=== PATIENT | female | born 1980 | race Caucasian/White ===

== ENCOUNTER 2016-09-08 10:43 | Inpatient (IN) | payer OTHER ==
[2016-09-08 11:00] VITALS: BMI 40.2
--- NOTE | 2016-09-08 12:10 | HP ---
COWS - Scale Resting Pulse: 2= [place] 101-120 Sweatin=Flushed/Facial Moisture Restless Observation: 1= Difficult to Sit Still Pupil Size: 0= Normal to Room Light Bone or Joint Aches: 2= Severe Diffuse Aches Runny Nose/ Eye Tearin= Runny Nose/Eyes GI Upset > 30mins: 2= Nausea/Diarrhea Tremor Observation: 2= Slight Tremor Visible Yawning Observation: 2= >3x During Session Anxiety or Irritability: 2=Irritable/Anxious Goose Flesh Skin: 3=Piloerection COWS Score: 20 CIWA Score - CIWA Score Nausea/Vomitin-Mild Nausea/No Vomiting Muscle Tremors: 4-Moderate,w/Arms Extend Anxiety: 4-Mod. Anxious/Guarded Agitation: 4-Moderately Restless Paroxysmal Sweats: 3 Orientation: 0-Oriented Tacttile Disturbances: 0-None Auditory Disturbances: 0-None Visual Disturbances: 0-None Headache: 2-Mild CIWA-Ar Total Score: 18 Admission ROS [facility] - HPI Chief Complaint: I relapsed and need to get my life back. Allergies/Adverse Reactions: Allergies Allergy/AdvReac Type Severity Reaction Status Date / Time No Known Allergies Allergy Verified 09/08/16 11:19 History of Present Illness: pt is a 36yr old female with a history of benzodiazapine and heroin dependence seeking detox for treatment. Exam Limitations: No Limitations - Ebola screening Have you traveled outside of the country in the last 21 days: No Have you had contact with anyone from an Ebola affected area: No Have you been sick,other than usual withdrawal symptoms: No Do you have a fever: No - Review of Systems Constitutional: Chills, Diaphoresis, Loss of Appetite, Night Sweats, Changes in sleep, Unintentional Wgt. Loss, Other (obese) EENT: reports: Tearing, Nose Congestion Respiratory: reports: Cough Cardiac: reports: Lightheadedness GI: reports: Diarrhea, Nausea, Poor Appetite, Poor Fluid Intake, Indigestion : reports: No Symptoms Reported Musculoskeletal: reports: Back Pain, Joint Pain, Muscle Pain, Muscle Weakness Integumentary: reports: Flushing, Sweating Neuro: reports: Headache, Tingling, Tremors Endocrine: reports: Excessive Sweating, Flushing, Intolerance to Cold, Intolerance to Heat Hematology: reports: No Symptoms Reported Psychiatric: reports: Judgement Intact, Mood/Affect Appropiate, Orientated x3, Agitated, Anxious Other Systems: Reviewed and Negative Patient History - Patient Medical History Hx Anemia: No Hx Asthma: No Hx Chronic Obstructive Pulmonary Disease (COPD): No Hx Cancer: No Hx Cardiac Disorders: No Hx Congestive Heart Failure: No Hx Hypertension: No Hx Hypercholesterolemia: No Hx Pacemaker: No HX Cerebrovascular Accident: No Hx Seizures: No Hx Dementia: No Hx Diabetes: No Hx Gastrointestinal Disorders: No Hx Liver Disease: No Hx Genitourinary Disorders: No Hx Sexually Transmitted Disorders: No Hx Renal Disease (ESRD): No Hx Thyroid Disease: No Hx Human Immunodeficiency Virus (HIV): No (negative) Hx Hepatitis C: No (negative) Hx Depression: Yes Hx Suicide Attempt: No Hx Bipolar Disorder: No Hx Schizophrenia: No Other Medical History: anxiety - Patient Surgical History Past Surgical History: No Hx Neurologic Surgery: No Hx Cataract Extraction: No Hx Cardiac Surgery: No Hx Lung Surgery: No Hx Breast Surgery: No Hx Breast Biopsy: No Hx Abdominal Surgery: No Hx Appendectomy: No Hx Cholecystectomy: No Hx Genitourinary Surgery: No Hx Section: No Hx Orthopedic Surgery: No Anesthesia Reaction: No - PPD History Previous Implant?: Yes Documented Results: Negative w/o proof PPD to be Administered?: Yes - Reproductive History Patient is a Female of Child Bearing Age (11 -55 yrs old): Yes LMP comment: 2016 Patient : No - Smoking Cessation Smoking history: Former smoker Have you smoked in the past 12 months: Yes If you are a former smoker, when did you quit?: 6months Hx Chewing Tobacco Use: No Initiated information on smoking cessation: Yes 'Breaking Loose' booklet given: 09/08/16 - Substance & Tx. History Hx Alcohol Use: No Hx Substance Use: Yes Substance Use Type: Heroin, Tranquilizers Hx Substance Use Treatment: Yes - Substances Abused Heroin Route: Inhalation Frequency: Daily Amount used: 10-30 bags Age of first use: 30 Date of Last Use: 09/08/16 Diazepam Route: Oral Frequency: Daily Amount used: $40 Age of first use: 22 Date of Last Use: 09/07/16 Family Disease History - Family Disease History Family Disease History: Heart Disease: Father (obesity. gastric bypass), CA: Grandparent (breast), Other: Father Admission Physical Exam BHS - Vital Signs Vital Signs: Vital Signs - 24 hr 09/08/16 10:57 Temperature 99.1 F Pulse Rate 114 H Respiratory 18 Rate Blood Pressure 108/44 - Physical General Appearance: Yes: Appropriately Dressed, Moderate Distress, Obese, Tremorous, Irritable, Sweating, Anxious HEENTM: Yes: Normal Voice, Nasal Congestion, Rhinorrhea Respiratory: Yes: Lungs Clear, Normal Breath Sounds, No Respiratory Distress Neck: Yes: No masses,lesions,Nodules Breast: Yes: Within Normal Limits Cardiology: Yes: Regular Rhythm, Regular Rate, S1, S2 Abdominal: Yes: Normal Bowel Sounds, Non Tender, Soft Genitourinary: Yes: Within Normal Limits Back: Yes: Normal Inspection Musculoskeletal: Yes: full range of Motion, Gait Steady, Pelvis Stable Extremities: Yes: Normal Capillary Refill, Non-Tender, Tremors Neurological: Yes: Fully Oriented, Alert, Normal Response Integumentary: Yes: Normal Color, Diaphoresis Lymphatic: Yes: Within Normal Limits - Diagnostic (1) Cannabis dependence Current Visit: Yes Status: Chronic (2) Depression Current Visit: Yes Status: Chronic (3) Obesity Current Visit: Yes Status: Chronic Qualifiers: Obesity severity: unspecified obesity severity (4) Opioid dependence with withdrawal Current Visit: Yes Status: Chronic (5) Uncomplicated sedative, hypnotic or anxiolytic withdrawal Current Visit: Yes Status: Chronic Cleared for Admission [facility] - Detox or Rehab [facility] Level of Care: Medically Managed Detox Regimen/Protocol: Methadone/Valium [facility] Breath Alcohol Content Breath Alcohol Content: 0 Urine Pregancy Test - Result Urine Test Results: Negative- NO Line Present Urine Drug Screen - Results Drug Screen Negative: No Urine Drug Screen Results: THC-Marijuana, OPI-Opiates, BZO-Benzodiazepines, TCA- Tricyclic Antidepress
[2016-09-08] MEDS ORDERED: MENTHOL/PHENOL 1 EACH UD MM PRN (12:31)
[2016-09-08] MEDS ORDERED: P-EPHED 60MG/TRIPROLIDI 2.5MG TABLET PO PRN (12:31)
[2016-09-08] MEDS ORDERED: IBUPROFEN 400 MG TABLET (FP) PO PRN (12:31)
[2016-09-08] MEDS ORDERED: MAG HYDROX/AL HYDROX/SIMETH 30 ML UNIT-DOSE CUP PO PRN (12:31)
[2016-09-08] MEDS ORDERED: ACETAMINOPHEN 325 MG TABLET (FP) PO PRN (12:31)
[2016-09-08] MEDS ORDERED: MAGNESIUM HYDROX 2400MG/30ML ORAL SUSPENSION 30 ML CUP PO PRN (12:31)
[2016-09-08] MEDS ORDERED: LOPERAMIDE HCL 2 MG CAPSULE PO PRN (12:31)
[2016-09-08] MEDS ORDERED: MAGNESIUM CITRATE 300 ML BOTTLE PO PRN (12:31)
[2016-09-08] MEDS ORDERED: guaiFENesin/D-METHORPHAN HB 10 ML UNIT-DOSE CUPS PO PRN (12:31)
[2016-09-08] MEDS ORDERED: diazePAM 5 MG TABLET PO ONE (15:06)
[2016-09-08] MEDS ORDERED: METHADONE HCL 10 MG TABLET (FOR DETOX USE ONLY) PO ONE ×2 (15:08→23:00)
--- NOTE | 2016-09-08 15:30 | CONSULT ---
[facility] Psychiatric Consult - Data Date of interview: 09/08/16 Admission source: [facility] Identifying data: This is 36 years old female with no psychiatric hospitalization history intoxicated with: Opioids, Benzidiazeoins, Cannabis and Nicotine Substance Abuse History: - Smoking Cessation. Smoking history: Former smoker. Have you smoked in the past 12 months: Yes. If you are a former smoker, when did you quit?: 6months. Hx Chewing Tobacco Use: No. Initiated information on smoking cessation: Yes. 'Breaking Loose' booklet given: 09/08/16. - Substance & Tx. History. Hx Alcohol Use: No. Hx Substance Use: Yes. Substance Use Type : Heroin, Tranquilizers. Hx Substance Use Treatment: Yes. - Substances Abused. Heroin. Route: Inhalation. Frequency: Daily. Amount used: 10-30 bags. Age of first use: 30. Date of Last Use: 09/08/16. Diazepam. Route: Oral. Frequency: Daily. Amount used: $40. Age of first use: 22. Date of Last Use: 09/07/16 Medical History: Hustoiry od Obesity, Psychiatric History: Patient reports history of anxiety and depression, reports trials with Wellbutrin in the past wioth no goog response, reports recently diagnosed with Bipolar disorder and Motivated to start Lamictal as per PCP after detoxifcation Physical/Sexual Abuse/Trauma History: Denies Additional Comment: Observation. Detox Unit Care Protocol Mental Status Exam - Mental Status Exam Alert and Oriented to: Person Cognitive Function: Fair Patient Appearance: Well Groomed Mood: Anxious Affect: Appropriate Patient Behavior: Cooperative Speech Pattern: Appropriate Voice Loudness: Normal Thought Process: Goal Oriented Thought Disorder: Being Controlled Hallucinations: Denies Suicidal Ideation: Denies Homicidal Ideation: Denies Insight/Judgement: Fair Sleep: Difficulty falling asleep Appetite: Weight gain Muscle strength/Tone: Normal Gait/Station: Deferred Additional Comments: Observation. Detox Unit Care Protocol Psychiatric Findings - Problem List ([place] 1, 2,3) (1) Cannabis dependence Current Visit: Yes Status: Chronic (2) Obesity Current Visit: Yes Status: Chronic Qualifiers: Obesity severity: unspecified obesity severity (3) Opioid dependence with withdrawal Current Visit: Yes Status: Chronic (4) Uncomplicated sedative, hypnotic or anxiolytic withdrawal Current Visit: Yes Status: Chronic (5) Benzodiazepine dependence Current Visit: No Status: Acute (6) Opioid dependence Current Visit: No Status: Acute (7) Social anxiety disorder Current Visit: No Status: Acute (8) Drug-induced mood disorder Current Visit: Yes Status: Acute - Initial Treatment Plan Initial Treatment Plan: Observation. Detox Unit Care Protocol
[2016-09-08] MEDS: diazePAM 5 MG TABLET PO SCH ×2 (16:00→22:31)
[2016-09-08 16:04] LABS: URINE APPEARANCE CLEAR; URINE BILIRUBIN NEGATIVE (NEGATIVE); URINE BLOOD NEGATIVE (NEGATIVE); URINE COLOR YELLOW; URINE GLUCOSE (UA) NEGATIVE (NEGATIVE); URINE KETONE NEGATIVE (NEGATIVE); URINE LEUK ESTERASE NEGATIVE (NEGATIVE); URINE NITRITE POSITIVE (NEGATIVE); URINE PROTEIN NEGATIVE (NEGATIVE); URINE UROBILINOGEN NEGATIVE E.U./dl (0.2-1.0)
[2016-09-08 16:53] LABS: URINE BACTERIA FEW /hpf (NONE SEEN); URINE MUCUS RARE; URINE RBC 1 /hpf (0-3); URINE WBC 1 /hpf (3-5)
--- NOTE | 2016-09-08 18:37 | PN ---
[facility] Progress Note Note: received nurse call c/o nausea zofran 4 mg x 1 increase oral fluid continue detox
[2016-09-08] MEDS ORDERED: ONDANSETRON *ODT* 4 MG TABLET SL ONE (18:45)
[2016-09-08] MEDS: diazePAM 5 MG TABLET PO PRN (18:57)
[2016-09-08] MEDS: diphenhydrAMINE HCL 50 MG CAPSULE PO PRN (22:30)
[2016-09-08] MEDS: THIAMINE HCL 100 MG TABLET (FP) PO SCH (22:31)
[2016-09-09] MEDS: diazePAM 5 MG TABLET PO SCH ×3 (06:05→23:09)
[2016-09-09] MEDS: diazePAM 5 MG TABLET PO PRN ×3 (09:25→18:45)
[2016-09-09] MEDS ORDERED: METHADONE HCL 10 MG TABLET (FOR DETOX USE ONLY) PO SCH (10:00)
[2016-09-09 10:23] LABS: MCH 26.9 pg (25.7-33.7); MCHC 32.4 g/dl (32.0-36.0); MEAN CELL VOLUME 82.9 fl (80-96); MEAN PLT VOLUME 9.5 fl (7.5-11.1); PLATELET COUNT 347 K/MM3 (134-434); RDW 13.5 % (11.6-15.6); WHITE BLOOD COUNT 6.7 K/mm3 (4.0-10.0)
--- NOTE | 2016-09-09 10:26 | PN ---
[facility] CIWA - CIWA Score Nausea/Vomitin-Mild Nausea/No Vomiting Muscle Tremors: 3 Anxiety: 4-Mod. Anxious/Guarded Agitation: 3 Paroxysmal Sweats: 3 Orientation: 0-Oriented Tacttile Disturbances: 0-None Auditory Disturbances: 0-None Visual Disturbances: 0-None Headache: 0-None Present CIWA-Ar Total Score: 14 S COWS - Scale Resting Pulse: 1= [place] 81-100 Sweatin=Flushed/Facial Moisture Restless Observation: 3= Extraneous Movement Pupil Size: 0= Normal to Room Light Bone or Joint Aches: 2= Severe Diffuse Aches Runny Nose/ Eye Tearin= Runny Nose/Eyes GI Upset > 30mins: 2= Nausea/Diarrhea Tremor Observation of Outstretched Hands: 4= Gross Tremor/Twitching Yawning Observation: 0= None Anxiety or Irritability: 2=Irritable/Anxious Goose Flesh Skin: 0=Smooth Skin COWS Score: 18 [facility] Progress Note (SOAP) Objective: 09/09/16 10:25 Laboratory Tests 09/08/16 15:00 Urine Color Yellow Urine Appearance Clear Urine pH 5.0 Ur Specific [place] 1.019 Urine Protein Negative Urine Glucose (UA) Negative Urine Ketones Negative Urine Blood Negative Urine Nitrite Positive Urine Bilirubin Negative Urine Urobilinogen Negative Ur Leukocyte Esterase Negative Urine RBC 1 Urine WBC 1 Ur Epithelial Cells Rare Urine Bacteria Few Urine Mucus Rare Vital Signs - 24 hr 09/08/16 09/08/16 09/08/16 10:57 18:03 22:45 Temperature 99.1 F 98.2 F Pulse Rate 114 H 80 75 Respiratory 18 20 18 Rate Blood Pressure 108/44 115/68 120/65 09/09/16 09/09/16 09/09/16 00:30 03:30 06:41 Temperature 98.3 F Pulse Rate 84 Respiratory 18 18 18 Rate Blood Pressure 97/81 09/09/16 10:20 Temperature 98.1 F Pulse Rate 71 Respiratory 20 Rate Blood Pressure 126/73 Assessment: 09/09/16 10:25 ongoing withdrawal Plan: continue detox protocol
[2016-09-09] MEDS: PRENATAL VITAMINS W/ FOLIC ACID TABLET (FP) PO SCH (10:31)
[2016-09-09 11:03] LABS: ALK PHOS 72 U/L (45-117); ANION GAP 8 (8-16); BILIRUBIN,TOTAL 0.4 mg/dL (0.2-1.0); CALCIUM 9.4 mg/dL (8.5-10.1); CO2 26 mmol/L (21-32); CREATININE 0.8 mg/dL (0.55-1.02); GLUCOSE,RANDOM 102 mg/dL (74-106); SGOT/AST 10 U/L (15-37); SGPT/ALT 20 U/L (12-78)
--- NOTE | 2016-09-09 12:42 | EKG ---
Test Reason : Blood Pressure : / mmHG Vent. Rate : 067 BPM Atrial Rate : 067 BPM P-R Int : 148 ms QRS Dur : 098 ms QT Int : 396 ms P-R-T Axes : 023 010 033 degrees QTc Int : 418 ms NORMAL SINUS RHYTHM WITH SINUS ARRHYTHMIA NON-SPECIFIC INTRA-VENTRICULAR CONDUCTION DELAY NO PREVIOUS ECGS AVAILABLE Confirmed by ROSENDO HONG MD ([id number]) on 09/09/2016 12:42:18 PM Referred By: Confirmed By:ROSENDO HONG MD
[2016-09-09] MEDS: hydrOXYzine PAMOATE 50 MG CAPSULE (FP) PO PRN ×2 (15:04→19:54)
[2016-09-09] MEDS: diphenhydrAMINE HCL 50 MG CAPSULE PO PRN (23:07)
[2016-09-09] MEDS: THIAMINE HCL 100 MG TABLET (FP) PO SCH (23:09)
[2016-09-10] MEDS: diazePAM 5 MG TABLET PO PRN ×3 (01:30→15:04)
[2016-09-10] MEDS: METHADONE HCL 5 MG TABLET (FOR DETOX USE ONLY) PO SCH (10:57)
[2016-09-10] MEDS: PRENATAL VITAMINS W/ FOLIC ACID TABLET (FP) PO SCH (10:57)
[2016-09-10] MEDS: diazePAM 5 MG TABLET PO SCH ×2 (10:58→22:36)
[2016-09-10] MEDS: hydrOXYzine PAMOATE 50 MG CAPSULE (FP) PO PRN ×2 (11:03→17:19)
[2016-09-10] MEDS ORDERED: cloNIDine HCL 0.1 MG TABLET PO ONE (13:06)
[2016-09-10] MEDS: CYCLOBENZAPRINE HCL 10 MG TABLET (FP) PO PRN ×2 (13:59→22:35)
--- NOTE | 2016-09-10 14:32 | PN ---
S CIWA - CIWA Score Nausea/Vomitin Muscle Tremors: 3 Anxiety: 3 Agitation: 3 Paroxysmal Sweats: 1-Minimal Palms Moist Orientation: 0-Oriented Tacttile Disturbances: 1-Very Mild Itch/Numbness Auditory Disturbances: 1-Very Mild Visual Disturbances: 1-Very Mild Sensitivity Headache: 2-Mild CIWA-Ar Total Score: 18 [facility] COWS - Scale Resting Pulse: 0= [place] 80 or Below Sweatin= Chills/Flushing Restless Observation: 3= Extraneous Movement Pupil Size: 1= Pupils >than Normal Bone or Joint Aches: 2= Severe Diffuse Aches Runny Nose/ Eye Tearin= Runny Nose/Eyes GI Upset > 30mins: 3= Vomiting/Diarrhea Tremor Observation of Outstretched Hands: 2= Slight Tremor Visible Yawning Observation: 1= 1-2x During Session Anxiety or Irritability: 2=Irritable/Anxious Goose Flesh Skin: 0=Smooth Skin COWS Score: 17 S Progress Note (SOAP) Subjective: ALERT,IRRITABLE,ANXIOUS,INTERRUPTED SLEEP,TREMOR,PAIN IN THE BODY Objective: 09/10/16 14:30 Vital Signs Temperature 98.1 F 09/10/16 14:00 Pulse Rate 89 09/10/16 14:00 Respiratory Rate 16 09/10/16 14:00 Blood Pressure 117/51 09/10/16 14:00 O2 Sat by Pulse Oximetry (%) EKG NSR WITH SINUS ARRHYTHMIA Laboratory Last Values WBC 6.7 K/mm3 (4.0-10.0) D 09/09/16 06:00 RBC 5.21 M/mm3 (3.60-5.2) H 09/09/16 06:00 Hgb 14.0 GM/dL (10.7-15.3) 09/09/16 06:00 Hct 43.2 % (32.4-45.2) 09/09/16 06:00 MCV 82.9 fl (80-96) 09/09/16 06:00 MCHC 32.4 g/dl (32.0-36.0) 09/09/16 06:00 RDW 13.5 % (11.6-15.6) 09/09/16 06:00 Plt Count 347 K/MM3 (134-434) D 09/09/16 06:00 MPV 9.5 fl (7.5-11.1) 09/09/16 06:00 Sodium 140 mmol/L (136-145) 09/09/16 06:00 Potassium 4.6 mmol/L (3.5-5.1) D 09/09/16 06:00 Chloride 106 mmol/L (98-107) 09/09/16 06:00 Carbon Dioxide 26 mmol/L (21-32) 09/09/16 06:00 Anion Gap 8 (8-16) 09/09/16 06:00 BUN 9 mg/dL (7-18) D 09/09/16 06:00 Creatinine 0.8 mg/dL (0.55-1.02) 09/09/16 06:00 Creat Clearance w eGFR > 60 (>60) 09/09/16 06:00 Random Glucose 102 mg/dL (74-106) D 09/09/16 06:00 Calcium 9.4 mg/dL (8.5-10.1) 09/09/16 06:00 Total Bilirubin 0.4 mg/dL (0.2-1.0) 09/09/16 06:00 AST 10 U/L (15-37) L 09/09/16 06:00 ALT 20 U/L (12-78) D 09/09/16 06:00 Alkaline Phosphatase 72 U/L (45-117) D 09/09/16 06:00 Total Protein 7.0 g/dl (6.4-8.2) 09/09/16 06:00 Albumin 4.0 g/dl (3.4-5.0) 09/09/16 06:00 Urine Color Yellow 09/08/16 15:00 Urine Appearance Clear 09/08/16 15:00 Urine pH 5.0 (5.0-8.0) 09/08/16 15:00 Ur Specific [place] 1.019 (1.001-1.035) 09/08/16 15:00 Urine Protein Negative (NEGATIVE) 09/08/16 15:00 Urine Glucose (UA) Negative (NEGATIVE) 09/08/16 15:00 Urine Ketones Negative (NEGATIVE) 09/08/16 15:00 Urine Blood Negative (NEGATIVE) 09/08/16 15:00 Urine Nitrite Positive (NEGATIVE) 09/08/16 15:00 Urine Bilirubin Negative (NEGATIVE) 09/08/16 15:00 Urine Urobilinogen Negative E.U./dl (0.2-1.0) 09/08/16 15:00 Ur Leukocyte Esterase Negative (NEGATIVE) 09/08/16 15:00 Urine RBC 1 /hpf (0-3) 09/08/16 15:00 Urine WBC 1 /hpf (3-5) 09/08/16 15:00 Ur Epithelial Cells Rare /hpf (FEW) 09/08/16 15:00 Urine Bacteria Few /hpf (NONE SEEN) 09/08/16 15:00 Urine Mucus Rare 09/08/16 15:00 RPR Titer Nonreactive (NONREACTIVE) 09/09/16 06:00 Assessment: 09/10/16 14:32 WITHDRAWAL SYMPTOM Plan: CONTINUE DETOX
[2016-09-10] MEDS: diphenhydrAMINE HCL 50 MG CAPSULE PO PRN (22:35)
[2016-09-10] MEDS: cloNIDine HCL 0.1 MG TABLET PO SCH (22:35)
[2016-09-10] MEDS: THIAMINE HCL 100 MG TABLET (FP) PO SCH (22:36)
[2016-09-11] MEDS: diazePAM 5 MG TABLET PO PRN ×3 (02:23→12:28)
[2016-09-11] MEDS: CYCLOBENZAPRINE HCL 10 MG TABLET (FP) PO PRN ×2 (06:07→18:04)
[2016-09-11] MEDS: cloNIDine HCL 0.1 MG TABLET PO SCH ×2 (10:45→22:37)
[2016-09-11] MEDS: PRENATAL VITAMINS W/ FOLIC ACID TABLET (FP) PO SCH (10:45)
[2016-09-11] MEDS: METHADONE HCL 5 MG TABLET (FOR DETOX USE ONLY) PO SCH (10:45)
[2016-09-11] MEDS: diazePAM 5 MG TABLET PO SCH ×2 (10:47→22:37)
[2016-09-11] MEDS: hydrOXYzine PAMOATE 50 MG CAPSULE (FP) PO PRN ×3 (10:48→18:10)
--- NOTE | 2016-09-11 13:59 | PN ---
[facility] Progress Note (SOAP) Subjective: ALERT,IRRITABLE,,INTERRUPTED SLEEP,PAIN IN THE BODY Objective: 09/11/16 13:58 Vital Signs Temperature 98.1 F 09/11/16 10:00 Pulse Rate 75 09/11/16 10:00 Respiratory Rate 18 09/11/16 10:00 Blood Pressure 120/71 09/11/16 10:00 O2 Sat by Pulse Oximetry (%) Assessment: 09/11/16 13:59 WITHDRAWAL SYMPTOM Plan: CONTINUE DETOX
[2016-09-11] MEDS: THIAMINE HCL 100 MG TABLET (FP) PO SCH (22:37)
[2016-09-11] MEDS: diphenhydrAMINE HCL 50 MG CAPSULE PO PRN (22:37)
[2016-09-12] MEDS ORDERED: diazePAM 5 MG TABLET PO SCH (10:00)
[2016-09-12] MEDS ORDERED: METHADONE HCL 10 MG TABLET (FOR DETOX USE ONLY) PO SCH (10:00)
[2016-09-12] MEDS: cloNIDine HCL 0.1 MG TABLET PO SCH ×2 (10:33→22:49)
[2016-09-12] MEDS: PRENATAL VITAMINS W/ FOLIC ACID TABLET (FP) PO SCH (10:33)
[2016-09-12] MEDS: hydrOXYzine PAMOATE 50 MG CAPSULE (FP) PO PRN ×3 (10:35→19:23)
[2016-09-12] MEDS: CYCLOBENZAPRINE HCL 10 MG TABLET (FP) PO PRN ×2 (11:13→22:49)
--- NOTE | 2016-09-12 14:29 | PN ---
[facility] Progress Note (SOAP) Subjective: ALERT,IRRITABLE,ANXIOUS,INTERRUPTED SLEEP Objective: 09/12/16 14:27 Vital Signs Temperature 96.9 F L 09/12/16 10:28 Pulse Rate 96 H 09/12/16 10:28 Respiratory Rate 20 09/12/16 10:28 Blood Pressure 123/75 09/12/16 10:28 O2 Sat by Pulse Oximetry (%) Assessment: 09/12/16 14:28 WITHDRAWAL SYMPTOM 09/12/16 14:28 Plan: CONTINUE DETOX,DISCHARGE IN AM
[2016-09-12] MEDS: diphenhydrAMINE HCL 50 MG CAPSULE PO PRN (22:49)
[2016-09-12] MEDS: THIAMINE HCL 100 MG TABLET (FP) PO SCH (22:49)
[2016-09-13] MEDS ORDERED: METHADONE HCL 5 MG TABLET (FOR DETOX USE ONLY) PO SCH (06:00)
[2016-09-13] MEDS: CYCLOBENZAPRINE HCL 10 MG TABLET (FP) PO PRN (06:48)
[2016-09-13] MEDS: hydrOXYzine PAMOATE 50 MG CAPSULE (FP) PO PRN (06:48)
--- NOTE | 2016-09-13 09:31 | DS ---
[facility] Detox Discharge Summary Admission Date: 09/08/16 Discharge Date: 09/13/16 - History Present History: Opioid Dependence, Sedative Dependence - Physical Exam Results Vital Signs: Vital Signs Temperature 97.3 F L 09/13/16 07:02 Pulse Rate 86 09/13/16 07:02 Respiratory Rate 18 09/13/16 07:02 Blood Pressure 115/73 09/13/16 07:02 O2 Sat by Pulse Oximetry (%) - Treatment Hospital Course: Detox Protocol Followed, Detoxed Safely, Responded well, Discharged Condition Good - Medication Discharge Medications: Ambulatory Orders NK [No Known Home Medication] 09/08/16 - Diagnosis (1) Cannabis dependence Current Visit: Yes Status: Chronic (2) Depression Current Visit: Yes Status: Chronic Qualifiers: Depression Type: unspecified Qualified Code(s): F32.9 - Major depressive disorder, single episode, unspecified (3) Obesity Current Visit: Yes Status: Chronic Qualifiers: Obesity severity: unspecified obesity severity (4) Opioid dependence with withdrawal Current Visit: Yes Status: Chronic (5) Uncomplicated sedative, hypnotic or anxiolytic withdrawal Current Visit: Yes Status: Chronic - AMA Did Patient Leave Against Medical Advice: No
[2016-09-13 10:25] VITALS: BP 100/51; PULSE 84; TEMP 98.2
== END 2016-09-13 10:30 | disposition home or self-care (01) | DRG 773 ==
LOC: YASAS 10:43 → Y6N 15:04
PROVIDERS: ADMIT Internal Medicine Addiction Medicine; ATTEND Internal Medicine Addiction Medicine
PROC: HZ2ZZZZ Detoxification Services for Substance Abuse Treatment (ICD-10-PCS; principal; 2016-09-08)
DX: F11.23 Opioid dependence with withdrawal (principal); F13.230 Sedative, hypnotic or anxiolytic dependence with withdrawal, uncomplicated; F12.20 Cannabis dependence, uncomplicated; F40.11 Social phobia, generalized; F19.24 Other psychoactive substance dependence with psychoactive substance-induced mood disorder; F32.9 Major depressive disorder, single episode, unspecified; E66.9 Obesity, unspecified; Z68.41 Body mass index [BMI] 40.0-44.9, adult; I49.9 Cardiac arrhythmia, unspecified; Z87.891 Personal history of nicotine dependence
CPT/HCPCS: 36415; 80053; 81003; 81015; 85027; 86593; 93005; 93010

== ENCOUNTER 2019-05-24 11:11 | Inpatient (IN) | payer OTHER ==
[2019-05-24 15:21] VITALS: BMI 39.4
--- NOTE | 2019-05-24 17:11 | HP ---
COWS - Scale Resting Pulse: 1= [place] 81-100 Sweatin= Chills/Flushing Restless Observation: 1= Difficult to Sit Still Pupil Size: 0= Normal to Room Light Bone or Joint Aches: 2= Severe Diffuse Aches Runny Nose/ Eye Tearin= Runny Nose/Eyes GI Upset > 30mins: 1= Stomach Cramp Tremor Observation: 2= Slight Tremor Visible Yawning Observation: 0= None Anxiety or Irritability: 2=Irritable/Anxious Goose Flesh Skin: 0=Smooth Skin COWS Score: 12 CIWA Score Nausea/Vomitin-Mild Nausea/No Vomiting Muscle Tremors: 2 Anxiety: 4-Mod. Anxious/Guarded Agitation: 2 Paroxysmal Sweats: 2 Orientation: 0-Oriented Tacttile Disturbances: 0-None Auditory Disturbances: 0-None Visual Disturbances: 0-None Headache: 2-Mild CIWA-Ar Total Score: 13 - Admission Criteria [facility] Guidelines: Admission for Medically Managed Detox: Requires at least one of the followin. CIWA greater than 12 2. Seizures within the past 24 hours 3. Delirium tremens within the past 24 hours 4. Hallucinations within the past 24 hours 5. Acute intervention needed for co occurring medical disorder 6. Acute intervention needed for co occurring psychiatric disorder 7. Severe withdrawal that cannot be handled at a lower level of care (continued vomiting, continued diarrhea, abnormal vital signs) requiring intravenous medication and/or fluids 8. Admission [facility] Chief Complaint: Etoh/Heroin/BZO withdrawal symptoms. Allergies/Adverse Reactions: Allergies Allergy/AdvReac Type Severity Reaction Status Date / Time No Known Allergies Allergy Verified 05/24/19 15:12 History of Present Illness: Patient presents for admission to detox for ETOH/Heroin/BZO withdrawals. Patient has been in detox in past, last time at [facility] three years ago. Patient states she started using heroin and ETOH regularly in her 30s. Patient previously would inject heroin but stopped due to infection, now patient sniffs up to a bundle of heroin daily and drinks 1 litre of liquor/day. Last use of both substances this morning. Patient also is prescribed Klonipin 0.5mg BID and Adderal 40mg daily, last adderal was one week ago. Last klonipin was this morning. Patient also has been taking Xanax 2mg (4 tabs) non-prescribed daily. Patient denies seizures. + hx of blackouts, overdose x 2-last one month ago and blackouts. PMH includes Bipolar disorder, anxiety and ADHD. Patient denies suicide attempts and SI/HI. Patient aware she will not receive adderal during admission and states she is fine with plan as she wants to get off medication. Patient also treated with suboxone but states she does not take it as it gives her withdrawal symptoms and would like to be referred to MTD program upon discharge. + marijuana/vaping use. Urine tox + THC, Fen, BZO. Others' Prescriptions Patient Name: Roberta Martinez Date: 1980 Address: [address] [place], [place] [id number] Sex: Female Rx Written Rx Dispensed Drug Quantity Days Supply Prescriber Name 05/07/2019 05/07/2019 clonazepam 0.5 mg tablet 60 30 Chuck, Rebecca G 05/07/2019 05/07/2019 dextroamp-amphet er 10 mg cap 30 30 Chuck, Rebecca G 05/07/2019 05/07/2019 dextroamp-amphet er 30 mg cap 30 30 Chuck, Rebecca G 05/07/2019 05/07/2019 buprenorphine-naloxone 8-2 mg sl tablet 90 30 Chuck, Rebecca G 05/03/2019 05/03/2019 lorazepam 1 mg tablet 6 3 David De La Rosa MD 04/02/2019 04/02/2019 dextroamp-amphet er 10 mg cap 10 10 Chuck, Rebecca G 04/02/2019 04/02/2019 dextroamp-amphet er 30 mg cap 10 10 Chuck, Rebecca G 04/02/2019 04/02/2019 buprenorphine-naloxone 8-2 mg sl tablet 30 10 Chuck, Rebecca G 04/02/2019 04/02/2019 clonazepam 0.5 mg tablet 20 10 Chuck, Rebecca G 03/01/2019 03/01/2019 dextroamp-amphet er 10 mg cap 30 30 Chuck, Rebecca G 03/01/2019 03/01/2019 dextroamp-amphet er 30 mg cap 30 30 Chuck, Rebecca G 03/01/2019 03/01/2019 buprenorphine-naloxone 8-2 mg sl tablet 90 30 Chuck, Rebecca G 03/01/2019 03/01/2019 clonazepam 0.5 mg tablet 60 30 Chuck, Rebecca G 01/09/2019 02/01/2019 dextroamp-amphet er 10 mg cap 30 30 Chuck, Rebecca 01/09/2019 02/01/2019 dextroamp-amphet er 30 mg cap 30 30 Chuck, Rebecca 01/09/2019 02/01/2019 buprenorphine-naloxone 8-2 mg sl tablet 90 30 Chuck, Rebecca 01/09/2019 02/01/2019 clonazepam 0.5 mg tablet 60 30 Chuck, Rebecca 01/04/2019 01/04/2019 buprenorphine-naloxone 8-2 mg sl tablet 90 30 Chuck, Rebecca 01/04/2019 01/04/2019 dextroamp-amphet er 10 mg cap 30 30 Chuck, Rebecca 01/04/2019 01/04/2019 dextroamp-amphet er 30 mg cap 30 30 Chuck, Rebecca 01/04/2019 01/04/2019 clonazepam 0.5 mg tablet 60 30 Chuck, Rebecca 12/06/2018 12/06/2018 dextroamp-amphet er 10 mg cap 30 30 Chuck, Rebecca 12/06/2018 12/06/2018 dextroamp-amphet er 30 mg cap 30 30 Chuck, Rebecca 12/06/2018 12/06/2018 clonazepam 0.5 mg tablet 60 30 Chuck, Rebecca 12/06/2018 12/06/2018 buprenorphine-naloxone 8-2 mg sl tablet 90 30 Chuck, Rebecca 11/06/2018 11/09/2018 dextroamp-amphet er 10 mg cap 30 30 Chuck, Rebecca 11/06/2018 11/09/2018 dextroamp-amphet er 30 mg cap 30 30 Chuck, Rebecca 11/06/2018 11/09/2018 buprenorphine-naloxone 8-2 mg sl tablet 90 30 Chuck, Rebecca 11/06/2018 11/09/2018 clonazepam 0.5 mg tablet 60 30 Chuck, Rebecca 09/12/2018 10/11/2018 buprenorphine-naloxone 8-2 mg sl tablet 90 30 Chuck, Rebecca G 10/11/2018 10/11/2018 clonazepam 0.5 mg tablet 60 30 Chuck, Rebecca G 10/11/2018 10/11/2018 dextroamp-amphet er 10 mg cap 30 30 Chuck, Rebecca 10/11/2018 10/11/2018 dextroamp-amphet er 30 mg cap 30 30 Chuck, Rebecca G 09/11/2018 09/12/2018 dextroamp-amphet er 10 mg cap 30 30 Chuck, Rebecca G 09/11/2018 09/12/2018 dextroamp-amphet er 30 mg cap 30 30 Chuck, Rebecca Mathew 09/11/2018 09/12/2018 clonazepam 0.5 mg tablet 60 30 Chuck, Rebecca G 09/12/2018 09/12/2018 buprenorphine-naloxone 8-2 mg sl tablet 90 30 Chuck, Rebecca G 08/06/2018 08/07/2018 dextroamp-amphet er 10 mg cap 30 30 Chuck, Rebecca G 08/06/2018 08/07/2018 dextroamp-amphet er 30 mg cap 30 30 Chuck, Rebecca Mathew Exam Limitations: No Limitations - Ebola screening Have you traveled outside of the country in the last 21 days: No Have you had contact with anyone from an Ebola affected area: No Have you been sick,other than usual withdrawal symptoms: No Do you have a fever: No - Review of Systems Constitutional: Chills, Changes in sleep, Weight Stable EENT: reports: Tearing, Nose Congestion Respiratory: reports: No Symptoms reported Cardiac: reports: No Symptoms Reported GI: reports: Nausea, Poor Fluid Intake, Abdominal cramping : reports: No Symptoms Reported Musculoskeletal: reports: Back Pain, Muscle Pain Integumentary: reports: Sweating, Other (track lyle) Neuro: reports: Headache Endocrine: reports: No Symptoms Reported Hematology: reports: No Symptoms Reported Psychiatric: reports: Orientated x3, Anxious Patient History - Patient Medical History Hx Anemia: No Hx Asthma: No Hx Chronic Obstructive Pulmonary Disease (COPD): No Hx Cancer: No Hx Cardiac Disorders: No Hx Congestive Heart Failure: No Hx Hypertension: No Hx Hypercholesterolemia: No Hx Pacemaker: No HX Cerebrovascular Accident: No Hx Seizures: No Hx Dementia: No Hx Diabetes: No Hx Gastrointestinal Disorders: No Hx Liver Disease: No Hx Genitourinary Disorders: No Hx Sexually Transmitted Disorders: No Hx Renal Disease (ESRD): No Hx Thyroid Disease: No Hx Human Immunodeficiency Virus (HIV): No (negative) Hx Hepatitis C: No (negative) Hx Depression: Yes Hx Suicide Attempt: No Hx Bipolar Disorder: Yes Hx Schizophrenia: No - Patient Surgical History Past Surgical History: No Hx Neurologic Surgery: No Hx Cataract Extraction: No Hx Cardiac Surgery: No Hx Lung Surgery: No Hx Breast Surgery: No Hx Breast Biopsy: No Hx Abdominal Surgery: No Hx Appendectomy: No Hx Cholecystectomy: No Hx Genitourinary Surgery: No Hx Section: No Hx Orthopedic Surgery: No Hx Hysterectomy: No Anesthesia Reaction: No - PPD History Previous Implant?: Yes Documented Results: Negative w/o proof Date: 09/10/16 PPD to be Administered?: Yes - Reproductive History Patient is a Female of Child Bearing Age (11 -55 yrs old): Yes Patient : No - Smoking Cessation Smoking history: Current every day smoker Have you smoked in the past 12 months: Yes Aproximately how many cigarettes per day: 8 (vaping) If you are a former smoker, when did you quit?: 6months Hx Chewing Tobacco Use: No Initiated information on smoking cessation: Yes 'Breaking Loose' booklet given: 05/24/19 - Substance & Tx. History Hx Alcohol Use: Yes Hx Substance Use: Yes Substance Use Type: Alcohol Hx Substance Use Treatment: Yes - Substances abused Alcohol Substance route: Oral Frequency: Daily Amount used: 1 liter of tequila Age of first use: 17 Date of last use: 05/24/19 Alprazolam (Xanax) Other (specify): 2mg Substance route: Oral Frequency: Daily Amount used: 4 bars Age of first use: 23 Date of last use: 05/23/19 Heroin Substance route: Inhalation Frequency: Daily Amount used: 1 bundle Age of first use: 31 Date of last use: 05/24/19 Admission Physical Exam S - Vital Signs Vital Signs: Vital Signs - 24 hr 05/24/19 15:11 Temperature 97.4 F L Pulse Rate 90 Respiratory 20 Rate Blood Pressure 127/94 - Physical General Appearance: Yes: Disheveled, Tremorous, Sweating, Anxious HEENTM: Yes: EOMI, Hearing grossly Normal, Normocephalic, Normal Voice, DENIA, Pharynx Normal, Nasal Congestion Respiratory: Yes: Chest Non-Tender, Lungs Clear, Normal Breath Sounds, No Respiratory Distress, No Accessory Muscle Use Neck: Yes: No masses,lesions,Nodules, Supple, Trachea in good position Breast: Yes: Breast Exam Deferred Cardiology: Yes: Regular Rhythm, Regular Rate, S1, S2 Abdominal: Yes: Normal Bowel Sounds, Non Tender, Soft Genitourinary: Yes: Within Normal Limits Back: Yes: Muscle Spasm Musculoskeletal: Yes: full range of Motion, Gait Steady, Back pain, Muscle Pain Neurological: Yes: staff electrical engineer II-XII NML intact, Fully Oriented, Alert, Motor Strength 5/5, Normal Response, Other (hx of bipolar disorder) Integumentary: Yes: Normal Color, Warm, Moist, Track Lyle Lymphatic: Yes: Within Normal Limits - Diagnostic (1) Sedative/hypnotic withdrawal Current Visit: Yes Status: Acute Qualifiers: Complication of substance-induced condition: uncomplicated Qualified Code(s ): F13.230 - Sedative, hypnotic or anxiolytic dependence with withdrawal, uncomplicated (2) Alcohol dependence with uncomplicated withdrawal Current Visit: Yes Status: Acute (3) Anxiety Current Visit: Yes Status: Suspected (4) Bipolar disorder Current Visit: Yes Status: Chronic Qualifiers: Current episode severity: unspecified (5) Cannabis dependence Current Visit: No Status: Chronic (6) Opioid dependence with withdrawal Current Visit: No Status: Acute Cleared for Admission [facility] - Detox or Rehab [facility] Level of Care: Medically Managed Detox Regimen/Protocol: Methadone/Librium Breathalyzer - Breathalyzer Breathalyzer: 0 POC Urine test - Result Urine Test Results: Negative - NO line present Urine Drug Screen - Test Device Lot number: [id number] Expiration date: 01/25/21 - Control Is test valid?: Yes - Results Drug screen NEGATIVE: No Urine drug screen results: THC-Marijuana, FEN-Fentanyl, BZO-Benzodiazepines Inpatient Rehab Admission - Rehab Decision to Admit Inpatient rehab admission?: No
[2019-05-24] MEDS ORDERED: MAGNESIUM CITRATE 300 ML BOTTLE PO PRN (17:15)
[2019-05-24] MEDS ORDERED: BISMUTH SUBSALICYLATE 524 MG/30 ML UD PO PRN (17:15)
[2019-05-24] MEDS ORDERED: NICOTINE POLACRILEX 2 MG GUM BUC PRN (17:15)
[2019-05-24] MEDS ORDERED: MENTHOL/PHENOL 1 EACH UD MM PRN (17:15)
[2019-05-24] MEDS ORDERED: P-EPHED 60MG/TRIPROLIDI 2.5MG TABLET PO PRN (17:15)
[2019-05-24] MEDS ORDERED: MAG HYDROX/AL HYDROX/SIMETH 30 ML UNIT-DOSE CUP PO PRN (17:15)
[2019-05-24] MEDS ORDERED: MAGNESIUM HYDROX 2400MG/30ML ORAL SUSPENSION 30 ML CUP PO PRN (17:15)
[2019-05-24] MEDS ORDERED: ONDANSETRON *ODT* 4 MG TABLET SL PRN (17:15)
[2019-05-24] MEDS ORDERED: ACETAMINOPHEN 325 MG TABLET (FP) PO PRN (17:15)
[2019-05-24] MEDS ORDERED: cloNIDine HCL 0.1 MG TABLET PO PRN (17:17)
[2019-05-24] MEDS ORDERED: NALOXONE HCL 0.4 MG/ML VIAL IM PRN (17:17)
[2019-05-24] MEDS ORDERED: METHADONE HCL 10 MG TABLET (FOR DETOX USE ONLY) PO ONE (18:15)
[2019-05-24] MEDS: MELATONIN 5 MG TABLETS PO PRN (22:08)
[2019-05-24] MEDS: THIAMINE HCL 100 MG TABLET (FP) PO SCH (22:08)
[2019-05-24] MEDS: chlordiazePOXIDE HCL 25 MG CAPSULE PO SCH (22:08)
[2019-05-24] MEDS: METHOCARBAMOL 500 MG TABLET PO PRN (23:26)
[2019-05-24] MEDS: hydrOXYzine PAMOATE 25 MG CAPSULE (FP) PO PRN (23:26)
[2019-05-25] MEDS: chlordiazePOXIDE HCL 10 MG CAPSULE PO PRN ×3 (04:08→16:53)
[2019-05-25] MEDS: ACETAMINOPHEN 325 MG TABLET (FP) PO PRN (04:08)
[2019-05-25] MEDS: chlordiazePOXIDE HCL 25 MG CAPSULE PO SCH ×3 (05:31→21:37)
[2019-05-25] MEDS ORDERED: METHADONE HCL 5 MG TABLET (FOR DETOX USE ONLY) PO ONE (10:00)
[2019-05-25] MEDS: PRENATAL VITAMINS W/ FOLIC ACID TABLET (FP) PO SCH (10:05)
[2019-05-25] MEDS: NICOTINE 14 MG/24 HOURS TOPICAL PATCH TD SCH (10:06)
[2019-05-25] MEDS: METHOCARBAMOL 500 MG TABLET PO PRN ×3 (10:06→21:38)
[2019-05-25 10:30] LABS: ALBUMIN 3.5 g/dl (3.4-5.0); BILIRUBIN,TOTAL 0.5 mg/dL (0.2-1); BLOOD UREA NITROGEN 17.3 mg/dL (7-18); CALCIUM 8.8 mg/dL (8.5-10.1); CREATININE 0.6 mg/dL (0.55-1.3); TOT PROT 6.3 g/dl (6.4-8.2)
[2019-05-25 10:31] LABS: HEMOGLOBIN 12.1 GM/dL (10.7-15.3); MCHC 33.7 g/dl (32.0-36.0); MEAN PLT VOLUME 8.2 fl (7.5-11.1); PLATELET COUNT 305 K/MM3 (134-434); RBC 4.33 M/mm3 (3.60-5.2); WHITE BLOOD COUNT 9.5 K/mm3 (4.0-10.0)
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
--- NOTE | 2019-05-25 17:59 | PN ---
[facility] CIWA - CIWA Score Nausea/Vomitin-No Nausea/No Vomiting Muscle Tremors: 2 Anxiety: 4-Mod. Anxious/Guarded Agitation: 4-Moderately Restless Paroxysmal Sweats: 3 (And Chills.) Orientation: 0-Oriented Tacttile Disturbances: 2-Mild Itch/Numbness/Burn Auditory Disturbances: 0-None Visual Disturbances: 0-None Headache: 0-None Present CIWA-Ar Total Score: 15 S COWS - Scale Resting Pulse: 0= [place] 80 or Below Sweatin= Chills/Flushing Restless Observation: 1= Difficult to Sit Still Pupil Size: 0= Normal to Room Light Bone or Joint Aches: 2= Severe Diffuse Aches Runny Nose/ Eye Tearin= None GI Upset > 30mins: 0= None Tremor Observation of Outstretched Hands: 2= Slight Tremor Visible Yawning Observation: 1= 1-2x During Session Anxiety or Irritability: 2=Irritable/Anxious Goose Flesh Skin: 3=Piloerection COWS Score: 12 S Progress Note (SOAP) Subjective: Chills, Sweating, Body Aches, Anxious. Objective: PATIENT A & O X 3, OBSERVED AMBULATING ON DETOX UNIT UNASSISTED. IN NO ACUTE DISTRESS. 05/25/19 17:58 Vital Signs Temperature 99.3 F 05/25/19 17:38 Pulse Rate 75 05/25/19 17:38 Respiratory Rate 18 05/25/19 17:38 Blood Pressure 120/90 05/25/19 17:38 O2 Sat by Pulse Oximetry (%) Laboratory Tests 05/25/19 05/25/19 05/25/19 07:40 07:40 07:40 WBC 9.5 RBC 4.33 Hgb 12.1 Hct 36.0 D MCV 83.0 MCH 28.0 MCHC 33.7 RDW 14.0 Plt Count 305 MPV 8.2 D Sodium 140 Potassium 4.0 Chloride 107 Carbon Dioxide 25 Anion Gap 9 BUN 17.3 Creatinine 0.6 Est GFR (CKD-EPI)AfAm 134.96 Est GFR (CKD-EPI)NonAf 116.44 Random Glucose 85 Calcium 8.8 Total Bilirubin 0.5 AST 10 L ALT 15 Alkaline Phosphatase 62 Total Protein 6.3 L Albumin 3.5 RPR Titer Nonreactive HIV 1&2 Antibody Screen HIV P24 Antigen 05/25/19 07:40 WBC RBC Hgb Hct MCV MCH MCHC RDW Plt Count MPV Sodium Potassium Chloride Carbon Dioxide Anion Gap BUN Creatinine Est GFR (CKD-EPI)AfAm Est GFR (CKD-EPI)NonAf Random Glucose Calcium Total Bilirubin AST ALT Alkaline Phosphatase Total Protein Albumin RPR Titer HIV 1&2 Antibody Screen Negative HIV P24 Antigen Negative LABS NOTED. Assessment: 05/25/19 17:58 WITHDRAWAL SYMPTOMS. Plan: CONTINUE DETOX. INCREASE DAILY PO WATER INTAKE.
[2019-05-25] MEDS: THIAMINE HCL 100 MG TABLET (FP) PO SCH (21:36)
[2019-05-25] MEDS: QUEtiapine FUMARATE 100 MG TABLET (FP) PO SCH (21:36)
[2019-05-26] MEDS: chlordiazePOXIDE 5 MG CAPSULE PO SCH ×3 (05:20→21:55)
[2019-05-26] MEDS: ACETAMINOPHEN 325 MG TABLET (FP) PO PRN (05:21)
[2019-05-26] MEDS: hydrOXYzine PAMOATE 25 MG CAPSULE (FP) PO PRN ×2 (05:21→14:23)
[2019-05-26] MEDS: METHOCARBAMOL 500 MG TABLET PO PRN ×3 (05:21→17:23)
[2019-05-26] MEDS ORDERED: METHADONE HCL 10 MG TABLET (FOR DETOX USE ONLY) PO ONE (10:00)
[2019-05-26] MEDS: NICOTINE 14 MG/24 HOURS TOPICAL PATCH TD SCH (10:10)
[2019-05-26] MEDS: PRENATAL VITAMINS W/ FOLIC ACID TABLET (FP) PO SCH (10:10)
[2019-05-26] MEDS: chlordiazePOXIDE HCL 10 MG CAPSULE PO PRN ×2 (10:11→18:25)
--- NOTE | 2019-05-26 13:30 | PN ---
S CIWA - CIWA Score Nausea/Vomitin-Mild Nausea/No Vomiting Muscle Tremors: 2 Anxiety: 3 Agitation: 2 Paroxysmal Sweats: 1-Minimal Palms Moist Orientation: 0-Oriented Tacttile Disturbances: 1-Very Mild Itch/Numbness Auditory Disturbances: 1-Very Mild Visual Disturbances: 0-None Headache: 0-None Present CIWA-Ar Total Score: 11 BHS COWS - Scale Resting Pulse: 1= [place] 81-100 Sweatin= Chills/Flushing Restless Observation: 0= Sits Still Pupil Size: 0= Normal to Room Light Bone or Joint Aches: 1= Mild Discomfort Runny Nose/ Eye Tearin= Nasal Congestion GI Upset > 30mins: 1= Stomach Cramp Tremor Observation of Outstretched Hands: 2= Slight Tremor Visible Yawning Observation: 1= 1-2x During Session Anxiety or Irritability: 2=Irritable/Anxious Goose Flesh Skin: 0=Smooth Skin COWS Score: 10 S Progress Note (SOAP) Subjective: doing well with librium and methadone detox regimen sleep better at night less anxious patient is able to focus on aftercare Objective: 05/26/19 13:29 Vital Signs Temperature 99.8 F H 05/26/19 09:50 Pulse Rate 89 05/26/19 09:50 Respiratory Rate 17 05/26/19 09:50 Blood Pressure 119/82 05/26/19 09:50 O2 Sat by Pulse Oximetry (%) Laboratory Last Values WBC 9.5 K/mm3 (4.0-10.0) 05/25/19 07:40 RBC 4.33 M/mm3 (3.60-5.2) 05/25/19 07:40 Hgb 12.1 GM/dL (10.7-15.3) 05/25/19 07:40 Hct 36.0 % (32.4-45.2) D 05/25/19 07:40 MCV 83.0 fl (80-96) 05/25/19 07:40 MCH 28.0 pg (25.7-33.7) 05/25/19 07:40 MCHC 33.7 g/dl (32.0-36.0) 05/25/19 07:40 RDW 14.0 % (11.6-15.6) 05/25/19 07:40 Plt Count 305 K/MM3 (134-434) 05/25/19 07:40 MPV 8.2 fl (7.5-11.1) D 05/25/19 07:40 Sodium 140 mmol/L (136-145) 05/25/19 07:40 Potassium 4.0 mmol/L (3.5-5.1) 05/25/19 07:40 Chloride 107 mmol/L (98-107) 05/25/19 07:40 Carbon Dioxide 25 mmol/L (21-32) 05/25/19 07:40 Anion Gap 9 MMOL/L (8-16) 05/25/19 07:40 BUN 17.3 mg/dL (7-18) 05/25/19 07:40 Creatinine 0.6 mg/dL (0.55-1.3) 05/25/19 07:40 Est GFR (CKD-EPI)AfAm 134.96 05/25/19 07:40 Est GFR (CKD-EPI)NonAf 116.44 05/25/19 07:40 Random Glucose 85 mg/dL (74-106) 05/25/19 07:40 Calcium 8.8 mg/dL (8.5-10.1) 05/25/19 07:40 Total Bilirubin 0.5 mg/dL (0.2-1) 05/25/19 07:40 AST 10 U/L (15-37) L 05/25/19 07:40 ALT 15 U/L (13-61) 05/25/19 07:40 Alkaline Phosphatase 62 U/L (45-117) 05/25/19 07:40 Total Protein 6.3 g/dl (6.4-8.2) L 05/25/19 07:40 Albumin 3.5 g/dl (3.4-5.0) 05/25/19 07:40 RPR Titer Nonreactive (NONREACTIVE) 05/25/19 07:40 HIV 1&2 Antibody Screen Negative 05/25/19 07:40 HIV P24 Antigen Negative 05/25/19 07:40 lab noted Assessment: 05/26/19 13:29 alcohol benzo opiate withdrawal sx Plan: continue librium and methadone detox regimen
[2019-05-26] MEDS: THIAMINE HCL 100 MG TABLET (FP) PO SCH (21:54)
[2019-05-26] MEDS: QUEtiapine FUMARATE 100 MG TABLET (FP) PO SCH (21:54)
[2019-05-26] MEDS: MELATONIN 5 MG TABLETS PO PRN (21:55)
[2019-05-26] MEDS ORDERED: PT OWN MED DRAWER 7, Y5N ONE (22:04)
[2019-05-27] MEDS ORDERED: chlordiazePOXIDE HCL 10 MG CAPSULE PO PRN
[2019-05-27] MEDS: IBUPROFEN 400 MG TABLET (FP) PO PRN ×2 (00:22→09:42)
[2019-05-27] MEDS: METHOCARBAMOL 500 MG TABLET PO PRN ×3 (00:22→13:21)
[2019-05-27] MEDS: chlordiazePOXIDE HCL 10 MG CAPSULE PO SCH ×2 (05:25→13:19)
[2019-05-27] MEDS ORDERED: METHADONE HCL 5 MG TABLET (FOR DETOX USE ONLY) PO ONE (06:00)
[2019-05-27] MEDS: hydrOXYzine PAMOATE 25 MG CAPSULE (FP) PO PRN ×2 (06:35→13:19)
[2019-05-27] MEDS: NICOTINE 14 MG/24 HOURS TOPICAL PATCH TD SCH (09:41)
[2019-05-27] MEDS: PRENATAL VITAMINS W/ FOLIC ACID TABLET (FP) PO SCH (09:42)
--- NOTE | 2019-05-27 12:43 | PN ---
[facility] CIWA - CIWA Score Nausea/Vomitin-Mild Nausea/No Vomiting Muscle Tremors: 1-None Visible, but Phillips Anxiety: 2 Agitation: 2 Paroxysmal Sweats: 1-Minimal Palms Moist Orientation: 0-Oriented Tacttile Disturbances: 0-None Auditory Disturbances: 0-None Visual Disturbances: 0-None Headache: 0-None Present CIWA-Ar Total Score: 7 S COWS - Scale Resting Pulse: 0= [place] 80 or Below Sweatin= Chills/Flushing Restless Observation: 0= Sits Still Pupil Size: 0= Normal to Room Light Bone or Joint Aches: 1= Mild Discomfort Runny Nose/ Eye Tearin= Nasal Congestion GI Upset > 30mins: 1= Stomach Cramp Tremor Observation of Outstretched Hands: 1= Tremor Phillips, Not Seen Yawning Observation: 1= 1-2x During Session Anxiety or Irritability: 1=Feels Anxious/Irritable Goose Flesh Skin: 0=Smooth Skin COWS Score: 7 [facility] Progress Note (SOAP) Subjective: doing well with librium and methadone detox regimen discuss medication assisted treatment program picker tender narcan from pharmacy Objective: 05/27/19 12:45 Vital Signs Temperature 99.3 F 05/27/19 09:08 Pulse Rate 80 05/27/19 09:08 Respiratory Rate 18 05/27/19 09:08 Blood Pressure 104/67 05/27/19 09:08 O2 Sat by Pulse Oximetry (%) Laboratory Last Values WBC 9.5 K/mm3 (4.0-10.0) 05/25/19 07:40 RBC 4.33 M/mm3 (3.60-5.2) 05/25/19 07:40 Hgb 12.1 GM/dL (10.7-15.3) 05/25/19 07:40 Hct 36.0 % (32.4-45.2) D 05/25/19 07:40 MCV 83.0 fl (80-96) 05/25/19 07:40 MCH 28.0 pg (25.7-33.7) 05/25/19 07:40 MCHC 33.7 g/dl (32.0-36.0) 05/25/19 07:40 RDW 14.0 % (11.6-15.6) 05/25/19 07:40 Plt Count 305 K/MM3 (134-434) 05/25/19 07:40 MPV 8.2 fl (7.5-11.1) D 05/25/19 07:40 Sodium 140 mmol/L (136-145) 05/25/19 07:40 Potassium 4.0 mmol/L (3.5-5.1) 05/25/19 07:40 Chloride 107 mmol/L (98-107) 05/25/19 07:40 Carbon Dioxide 25 mmol/L (21-32) 05/25/19 07:40 Anion Gap 9 MMOL/L (8-16) 05/25/19 07:40 BUN 17.3 mg/dL (7-18) 05/25/19 07:40 Creatinine 0.6 mg/dL (0.55-1.3) 05/25/19 07:40 Est GFR (CKD-EPI)AfAm 134.96 05/25/19 07:40 Est GFR (CKD-EPI)NonAf 116.44 05/25/19 07:40 Random Glucose 85 mg/dL (74-106) 05/25/19 07:40 Calcium 8.8 mg/dL (8.5-10.1) 05/25/19 07:40 Total Bilirubin 0.5 mg/dL (0.2-1) 05/25/19 07:40 AST 10 U/L (15-37) L 05/25/19 07:40 ALT 15 U/L (13-61) 05/25/19 07:40 Alkaline Phosphatase 62 U/L (45-117) 05/25/19 07:40 Total Protein 6.3 g/dl (6.4-8.2) L 05/25/19 07:40 Albumin 3.5 g/dl (3.4-5.0) 05/25/19 07:40 POC Urine HCG, Qual Negative 05/24/19 16:37 RPR Titer Nonreactive (NONREACTIVE) 05/25/19 07:40 HIV 1&2 Antibody Screen Negative 05/25/19 07:40 HIV P24 Antigen Negative 05/25/19 07:40 lab noted Assessment: 05/27/19 12:45 alcohol benzo and opiate withdrawal sx Plan: continue librium and methadone detox regimen
--- NOTE | 2019-05-27 13:28 | EKG ---
Test Reason : Blood Pressure : / mmHG Vent. Rate : 075 BPM Atrial Rate : 075 BPM P-R Int : 152 ms QRS Dur : 104 ms QT Int : 384 ms P-R-T Axes : 036 016 026 degrees QTc Int : 428 ms NORMAL SINUS RHYTHM INCOMPLETE RIGHT BUNDLE BRANCH BLOCK BORDERLINE ECG WHEN COMPARED WITH ECG OF 08-SEP-2016 15:44, NO SIGNIFICANT CHANGE WAS FOUND Confirmed by BEVERLY CAT MD ([id number]) on 05/27/2019 1:27:34 PM Referred By: Confirmed By:BEVERLY CAT MD
--- NOTE | 2019-05-27 14:29 | DS ---
[facility] Detox Discharge Summary Admission Date: 05/24/19 Discharge Date: 05/27/19 - History Present History: Alcohol Dependence, Opioid Dependence, Sedative Dependence Additional Comments: 38 years old female admitted on 05/24/19 for alcohol benzo and opiate withdrawal sx management did well with librium and methadone detox regimen patient reported that she is taking lamotrigine 300 mg po daily last dose "week ago" patient stated that she has been taking many prn medications to compensate lamotrigine patient seen by psychiatrist lamotrigine serum level pending patient reports that she has lamotrigine at home and would like to return home for lamotrigine and attention deficit medication and some other prescribed medications [facility] to home Pertinent Past History: patient is alert oriented x 3 ambulating with steady gait patient had conversation with the counselor that she would like to return home for lamotrigine agrees [facility] denies dizziness no nausea no vomiting no shortness of breath no chest pain patient can be discharged one day early see melissa today - Physical Exam Results Vital Signs: Vital Signs Temperature 98.8 F 05/27/19 13:15 Pulse Rate 80 05/27/19 13:15 Respiratory Rate 18 05/27/19 13:15 Blood Pressure 129/80 05/27/19 13:15 O2 Sat by Pulse Oximetry (%) Pertinent Admission Physical Exam Findings: alcohol benzo opiate withdrawal sx Laboratory Last Values WBC 9.5 K/mm3 (4.0-10.0) 05/25/19 07:40 RBC 4.33 M/mm3 (3.60-5.2) 05/25/19 07:40 Hgb 12.1 GM/dL (10.7-15.3) 05/25/19 07:40 Hct 36.0 % (32.4-45.2) D 05/25/19 07:40 MCV 83.0 fl (80-96) 05/25/19 07:40 MCH 28.0 pg (25.7-33.7) 05/25/19 07:40 MCHC 33.7 g/dl (32.0-36.0) 05/25/19 07:40 RDW 14.0 % (11.6-15.6) 05/25/19 07:40 Plt Count 305 K/MM3 (134-434) 05/25/19 07:40 MPV 8.2 fl (7.5-11.1) D 05/25/19 07:40 Sodium 140 mmol/L (136-145) 05/25/19 07:40 Potassium 4.0 mmol/L (3.5-5.1) 05/25/19 07:40 Chloride 107 mmol/L (98-107) 05/25/19 07:40 Carbon Dioxide 25 mmol/L (21-32) 05/25/19 07:40 Anion Gap 9 MMOL/L (8-16) 05/25/19 07:40 BUN 17.3 mg/dL (7-18) 05/25/19 07:40 Creatinine 0.6 mg/dL (0.55-1.3) 05/25/19 07:40 Est GFR (CKD-EPI)AfAm 134.96 05/25/19 07:40 Est GFR (CKD-EPI)NonAf 116.44 05/25/19 07:40 Random Glucose 85 mg/dL (74-106) 05/25/19 07:40 Calcium 8.8 mg/dL (8.5-10.1) 05/25/19 07:40 Total Bilirubin 0.5 mg/dL (0.2-1) 05/25/19 07:40 AST 10 U/L (15-37) L 05/25/19 07:40 ALT 15 U/L (13-61) 05/25/19 07:40 Alkaline Phosphatase 62 U/L (45-117) 05/25/19 07:40 Total Protein 6.3 g/dl (6.4-8.2) L 05/25/19 07:40 Albumin 3.5 g/dl (3.4-5.0) 05/25/19 07:40 POC Urine HCG, Qual Negative 05/24/19 16:37 RPR Titer Nonreactive (NONREACTIVE) 05/25/19 07:40 HIV 1&2 Antibody Screen Negative 05/25/19 07:40 HIV P24 Antigen Negative 05/25/19 07:40 lab noted - Treatment Hospital Course: Detox Protocol Followed, Detoxed Safely, Responded well, Discharged Condition Good, Rehab Referral Accepted Patient has Accepted a Re[facility] Referral to: [facility] - Medication Discharge Medications: Ambulatory Orders Buprenorphine HCl/Naloxone HCl [Suboxone 8 mg-2 mg Sl Tablets] 1 each SL DAILY 05/24/19 Clonazepam [Klonopin] 1 mg PO BID 05/24/19 Dextroamphetamine/Amphetamine [Adderall 10 mg Tablet] 40 mg PO DAILY 05/24/19 Lamotrigine [Lamictal] 300 mg PO DAILY 05/24/19 Quetiapine Fumarate [Seroquel -] 100 mg PO HS 05/24/19 Naloxone HCl [Narcan] 4 mg NS ASDIR PRN #1 spray 05/27/19 - Diagnosis (1) Alcohol dependence with uncomplicated withdrawal Current Visit: Yes Status: Acute (2) Opioid dependence with withdrawal Current Visit: Yes Status: Acute (3) Uncomplicated sedative, hypnotic or anxiolytic withdrawal Current Visit: Yes Status: Acute - AMA Did Patient Leave Against Medical Advice: No
--- NOTE | 2019-05-27 15:11 | PN ---
Psychiatric Progress Note Vital Signs: Vital Signs Period Temp Pulse Resp BP Sys/Desai Pulse Ox Last 24 Hr 98.7 F-99.8 F 80-90 16-18 99-129/60-83 Date of Session: 05/27/19 Chief Complaint:: " I am going home if I don't get lamotrigine." HPI: Called by medical [employer] Warren Carlson to see this patient who is requesting lamotrigine. It appears that the patient is getting overly anxious about not getting this medication. Hospital course is otherwise unremarkable. ROS: Patient is atlert, fully oriented and cooperative. Ambulatory. Feels anxious. Current Medications: Active Medications Generic Name Dose Route Start Last Admin Trade Name Freq PRN Reason Stop Dose Admin Acetaminophen 650 mg 05/24/19 17:15 05/26/19 05:21 Tylenol - PO 650 mg Q6H PRN Administration PAIN LEVEL 4 - 6 Acetaminophen 650 mg 05/24/19 17:15 Tylenol - PO Q6H PRN FEVER Al Hydroxide/Mg Hydroxide 30 ml 05/24/19 17:15 Mylanta Oral Suspension - PO Q6H PRN DYSPEPSIA Bismuth Subsalicylate 524 mg 05/24/19 17:15 Pepto-Bismol - PO Q1H PRN DIARRHEA Chlordiazepoxide HCl 10 mg 05/27/19 00:00 05/27/19 09:42 Librium - PO 05/27/19 23:59 10 mg Q12H PRN Administration Signs/symptoms of Withdrawal Chlordiazepoxide HCl 10 mg 05/27/19 05:00 05/27/19 13:19 Librium - PO 05/27/19 21:01 10 mg Q8H REHAN Administration Chlordiazepoxide HCl 10 mg 05/28/19 05:00 Librium - PO 05/28/19 05:01 ONCE ONE Eucalyptus/Menthol/Phenol/Sorbitol 1 each 05/24/19 17:15 Cepastat Lozenge - MM 05/30/19 17:15 Q4H PRN SORE THROAT Hydroxyzine Pamoate 25 mg 05/24/19 17:15 05/27/19 13:19 Vistaril - PO 05/30/19 17:15 25 mg Q6H PRN Administration For Anxiety Ibuprofen 400 mg 05/24/19 17:15 05/27/19 09:42 Motrin - PO 400 mg Q6H PRN Administration PAIN LEVEL 1 - 3 Magnesium Citrate 300 ml 05/24/19 17:15 Citroma - PO Q48H PRN CONSTIPATION Magnesium Hydroxide 30 ml 05/24/19 17:15 Milk Of Magnesia - PO PRN PRN CONSTIPATION Melatonin 5 mg 05/24/19 17:15 05/26/19 21:55 Melatonin PO 5 mg HS PRN Administration INSOMNIA Methocarbamol 500 mg 05/24/19 17:15 05/27/19 13:21 Robaxin - PO 05/30/19 17:15 500 mg Q6H PRN Administration MUSCLE SPASMS Naloxone HCl 0.4 mg 05/24/19 17:17 Narcan - IM PRN PRN RESPIRATORY DEPRESSION Nicotine 14 mg 05/25/19 10:00 05/27/19 09:41 Nicoderm Patch - TD Not Given DAILY REHAN Nicotine Polacrilex 2 mg 05/24/19 17:15 05/26/19 14:25 Nicorette Gum - BUC 2 mg Q2H PRN Administration NICOTINE REPLACEMENT RX Ondansetron HCl 4 mg 05/24/19 17:15 Zofran Odt - SL 05/30/19 17:16 Q12H PRN Nausea/Vomiting Multivit/Folic Acid/Iron 1 tab 05/25/19 10:00 05/27/19 09:42 Vitamins (Sjr) - PO 1 tab DAILY REHAN Administration Pseudoephedrine/Triprolidine 1 combo 05/24/19 17:15 Actifed - PO 05/30/19 17:16 Q6H PRN NASAL CONGESTION Quetiapine Fumarate 100 mg 05/25/19 22:00 05/26/19 21:54 Seroquel - PO 100 mg HS REHAN Administration Thiamine HCl 100 mg 05/24/19 22:00 05/26/19 21:54 Vitamin B1 - PO 100 mg HS REHAN Administration Medication(s) Change(s): Contact established with pharmacist at the [facility] at [phone]. Medication is confirmed (refill picked up on 05/07/19 and consistent with lamictal 200 mg/hs). Patient reports that she has been on that medication since August 2016. No prior history of adverse effects. Will resume lamotrigine 50 mg po bid. Side effects/benefits discussed with the patient. Made aware of risk of Trey-Yusef syndrome. Ms Martinez agrees with this plan of care. Current Side Effect: No Lab tests ordered: No Lab tests reviewed: Yes Provider note:: Chart reviewed. Case discussed, via telephone, with the referring clinician, [employer] Kristal Carlson. Met with the patient. Ms Martinez is cooperative, controlled and conversant. She is observed as well groomed, sociable on the unit and appropriate. Denies suicidal or homicidal intent or plan. Admits to feeling much better after witnessing MD contact [facility]. Patient states that she will NOT need script at discharge (refills available at [facility] + scheduled OPD appointment at [facility]). Stable mental status. Total face to face time:: 35 Mental Status Exam - Mental Status Exam Alert and Oriented to: Time, Place, Person Cognitive Function: Good Patient Appearance: Well Groomed (obese) Mood: Anxious Affect: Mood Congruent Patient Behavior: Appropriate, Cooperative Speech Pattern: Clear, Appropriate Voice Loudness: Normal Thought Process: Intact, Goal Oriented Thought Disorder: Not Present Hallucinations: Denies Suicidal Ideation: Denies Homicidal Ideation: Denies Insight/Judgement: Fair Sleep: Well Appetite: Good Gait/Station: Normal Psychiatric Treatment Plan - Problem List (1) Alcohol dependence with uncomplicated withdrawal Current Visit: Yes Comment: . (2) Opioid dependence with withdrawal Current Visit: Yes Comment: . (3) Sedative/hypnotic withdrawal Current Visit: Yes Qualifiers: Complication of substance-induced condition: uncomplicated Qualified Code(s ): F13.230 - Sedative, hypnotic or anxiolytic dependence with withdrawal, uncomplicated Comment: . (4) Drug-induced mood disorder Current Visit: Yes Comment: . (5) Bipolar disorder Current Visit: Yes Qualifiers: Current episode severity: unspecified Comment: . (6) History of attention deficit hyperactivity disorder (ADHD) Current Visit: Yes Comment: . (7) Insomnia Current Visit: Yes Comment: .
[2019-05-27 17:52] VITALS: BP 129/78; PULSE 73; TEMP 98.6
--- NOTE | 2019-05-27 18:24 | PN ---
S Progress Note Note: States feeling better and ready for discharge. COWS: GI Upset > 30mins: 2 = nausea Anxiety or Irritability: 2=Irritable/Anxious Patient states has an appt to f/u in a [facility] Program in [place] on Monday and plans on going. Patient refuses to stay despite encouragement.
[2019-05-27] MEDS ORDERED: lamoTRIgine 25 MG TABLET PO SCH (22:00)
--- NOTE | 2019-05-28 02:02 | DS ---
[facility] Detox Discharge Summary Admission Date: 05/24/19 Discharge Date: 05/27/19 - History Present History: Alcohol Dependence, Cannabis Dependence, Opioid Dependence Additional Comments: Patient admitted w/ c/o alcohol and opiate withdrawal. - Physical Exam Results Vital Signs: Vital Signs Temperature 98.6 F 05/27/19 17:51 Pulse Rate 73 05/27/19 17:51 Respiratory Rate 18 05/27/19 17:51 Blood Pressure 129/78 05/27/19 17:51 O2 Sat by Pulse Oximetry (%) Pertinent Admission Physical Exam Findings: Admitted w/ opioid, alcohol, and benzo withdrawal symptoms,. Lab Results WBC 9.5 K/mm3 (4.0-10.0) 05/25/19 07:40 RBC 4.33 M/mm3 (3.60-5.2) 05/25/19 07:40 Hgb 12.1 GM/dL (10.7-15.3) 05/25/19 07:40 Hct 36.0 % (32.4-45.2) D 05/25/19 07:40 MCV 83.0 fl (80-96) 05/25/19 07:40 MCHC 33.7 g/dl (32.0-36.0) 05/25/19 07:40 RDW 14.0 % (11.6-15.6) 05/25/19 07:40 Plt Count 305 K/MM3 (134-434) 05/25/19 07:40 Sodium 140 mmol/L (136-145) 05/25/19 07:40 Potassium 4.0 mmol/L (3.5-5.1) 05/25/19 07:40 Chloride 107 mmol/L (98-107) 05/25/19 07:40 Carbon Dioxide 25 mmol/L (21-32) 05/25/19 07:40 Anion Gap 9 MMOL/L (8-16) 05/25/19 07:40 BUN 17.3 mg/dL (7-18) 05/25/19 07:40 Creatinine 0.6 mg/dL (0.55-1.3) 05/25/19 07:40 Random Glucose 85 mg/dL (74-106) 05/25/19 07:40 Calcium 8.8 mg/dL (8.5-10.1) 05/25/19 07:40 Labs reviewed. Patient declined nicotine patch and gum. - Treatment Hospital Course: Detox Protocol Followed, Detoxed Safely, Responded well, Rehab Referral Accepted (Patient states has an appt to f/u in a [facility] Program in [place] on Monday and plans on going.) - Medication Discharge Medications: Ambulatory Orders Buprenorphine HCl/Naloxone HCl [Suboxone 8 mg-2 mg Sl Tablets] 1 each SL DAILY 05/24/19 Clonazepam [Klonopin] 1 mg PO BID 05/24/19 Dextroamphetamine/Amphetamine [Adderall 10 mg Tablet] 40 mg PO DAILY 05/24/19 Lamotrigine [Lamictal] 300 mg PO DAILY 05/24/19 Quetiapine Fumarate [Seroquel -] 100 mg PO HS 05/24/19 Naloxone HCl [Narcan] 4 mg NS ASDIR PRN #1 spray 05/27/19 - AMA Did Patient Leave Against Medical Advice: No
[2019-05-28] MEDS ORDERED: chlordiazePOXIDE HCL 10 MG CAPSULE PO ONE (05:00)
== END 2019-05-27 19:03 | disposition home or self-care (01) | DRG 773 ==
LOC: YASAS 11:11 → Y3N 17:25
PROVIDERS: ADMIT Surgery; ATTEND Surgery
PROC: HZ2ZZZZ Detoxification Services for Substance Abuse Treatment (ICD-10-PCS; principal; 2019-05-24)
DX: F11.23 Opioid dependence with withdrawal (principal); F10.230 Alcohol dependence with withdrawal, uncomplicated; F13.230 Sedative, hypnotic or anxiolytic dependence with withdrawal, uncomplicated; F17.210 Nicotine dependence, cigarettes, uncomplicated; F19.24 Other psychoactive substance dependence with psychoactive substance-induced mood disorder; F31.9 Bipolar disorder, unspecified; F41.9 Anxiety disorder, unspecified; G47.00 Insomnia, unspecified
CPT/HCPCS: 36415; 80053; 80175; 81025; 85027; 86593; 87389; 93005; 93010; J0735